=== PATIENT | male | born 1970 | race Caucasian/White ===

== ENCOUNTER 2020-10-11 08:09 | Emergency (ER) | payer OTHER ==
[~2020-10-11] VITALS: Ht 170.2 cm; Wt 75.5 kg
[2020-10-11 08:27] VITALS: BP 134/60
[2020-10-11] MEDS ORDERED: TETanus/Pertussis (Acell)/Diphther VAC/PF (Tdap-Adult) 0.5ml syringe IMVAC ONE (08:35)
[2020-10-11] MEDS ORDERED: LIDOcaine 1% W/epiNEPHrine 1:200,000 10ml vial IJ ONE (08:35)
[2020-10-11] MEDS ORDERED: ceFAZolin 1gm IM kit IM ONE (09:25)
[2020-10-11] MEDS ORDERED: CEPH250T PO (09:41)
[2020-10-11] MEDS ORDERED: ONDA4TAB6 PO (09:41)
[2020-10-11] MEDS ORDERED: HYDR-3965 PO (09:41)
== END 2020-10-11 10:54 | disposition home or self-care (01) ==
LOC: ER 08:10
DX: S62.622A Displaced fracture of middle phalanx of right middle finger, initial encounter for closed fracture (principal); Z20.3 Contact with and (suspected) exposure to rabies; Z79.2 Long term (current) use of antibiotics; Z79.899 Other long term (current) drug therapy; W45.0XXA Nail entering through skin, initial encounter; Y93.89 Activity, other specified; Y92.89 Other specified places as the place of occurrence of the external cause; Y99.8 Other external cause status
CPT/HCPCS: 29130; 73140; 90471; 90715; 96372; 99284; J0690